=== PATIENT | male | born 1955 | race Caucasian/White ===

== ENCOUNTER 2017-11-01 08:25 | Inpatient (IN) | payer MEDICAID, OTHER ==
[~2017-11-01] VITALS: Ht 170.2 cm; Wt 100.3 kg
[2017-11-01 09:26] LABS: Basophils # (auto) 0.1 uL; Basophils % (auto) 1.3 % (0.0-2.0); Eosinophils # (auto) 0.2 uL; Eosinophils % (auto) 2.5 % (0.0-7.0); Hematocrit 47.4 % (41.0-53.0); Hemoglobin 15.5 g/dL (13.5-17.5); Lymphocytes # (auto) 2.4 uL; Lymphocytes % (auto) 26.7 % (10.0-50.0); Mean Corpuscular Hemoglobin 27.4 pg (28.0-32.0); Mean Corpuscular Hgb Conc. 32.6 g/dL (32.0-36.0); Mean Corpuscular Volume 84.1 fL (80.0-100.0); Monocytes # (auto) 1.1 uL; Monocytes % (auto) 11.9 % (0.0-12.0); Neutrophils # (auto) 5.1 uL; Neutrophils % (auto) 57.6 % (37.0-80.0); Nucleated Red Blood Cells % 0.1 %; Platelet Count (auto) 281 10^3/uL (140-450); Red Blood Cells 5.63 10^6/uL (4.5-5.90); Red Cell Distribution Width 15.2 % (11.8-14.3); White Blood Cell 8.9 10^3/uL (4.4-10.8)
[2017-11-01 09:46] LABS: BUN/Creatinine Ratio 15.8; Bilirubin, Total 0.4 mg/dL (0.2-1.0); Calcium 9.2 mg/dL (8.5-10.1); Potassium 4.7 mmol/L (3.5-5.1); Total Protein 6.8 g/dL (6.4-8.2)
[2017-11-01] MEDS ORDERED: ACETAMINOPHEN 500 MG TAB PO PRN (10:15)
[2017-11-01] MEDS ORDERED: PROMETHAZINE HCL 25 MG/ML 1ML IV PRN (10:15)
[2017-11-01] MEDS ORDERED: MORPHINE SULF(PF) 0.5MG/ML 10ML VIAL IV PRN (10:15)
[2017-11-01] MEDS ORDERED: NALBUPHINE HCL 10 MG/1ml INJECTION IV PRN (10:15)
[2017-11-01] MEDS ORDERED: LACTULOSE 20Gm/30ML SOLN PO PRN (10:15)
[2017-11-01] MEDS ORDERED: NITROGLYCERIN 0.4 MG SL TAB SL PRN (10:15)
[2017-11-01] MEDS ORDERED: TEMAZEPAM 15 MG CAP PO PRN (10:15)
[2017-11-01] MEDS ORDERED: FUROSEMIDE 40 MG/4 ML VIAL IV ONE (10:15)
[2017-11-01] MEDS ORDERED: DEXTROSE (50%) 50ML SYRG IV PRN (10:15)
[2017-11-01] MEDS ORDERED: LORazepam 0.5 MG TAB PO PRN (10:15)
[2017-11-01] MEDS ORDERED: HYDROcodone-ACET 5/325MG TAB PO PRN (10:15)
[2017-11-01 11:29] LABS: Partial Thromboplastin Time 27.5 sec (23.78-33.04); Prothrombin Time 10.7 sec (9.27-12.13)
[2017-11-01] MEDS: ACCU-CHEK COMFORT CURVE STRIP VI SCH ×3 (11:49→22:04)
[2017-11-01 12:19] LABS: Alcohol, Urine < 3.0 mg/dL (0-5); Amphetamine Screen, Urine POSITIVE (NEGATIVE); Barbiturate Scree,Urine NEGATIVE (NEGATIVE); Benzodiazephine Screen, Urine NEGATIVE (NEGATIVE); Cannabinoid Screen, Urine POSITIVE (NEGATIVE); Cocaine Screen, Urine NEGATIVE (NEGATIVE); Opiate Scree,Urine NEGATIVE (NEGATIVE); Phencyclidine Screen, Urine NEGATIVE (NEGATIVE)
[2017-11-01 12:20] LABS: Urine Bacteria NONE SEEN /hpf (None Seen); Urine Blood Negative /uL (Negative); Urine Specific Gravity 1.026 (1.001-1.035); Urine WBC 1 /hpf (0 - 3)
[2017-11-01] MEDS: InsuLIN REG 1unit/0.01ml Soln (100units/ml) SC SCH ×3 (12:39→22:04)
[2017-11-01] MEDS: SODIUM CHLOR 0.9% PF (SALINE LOCK) 10ML VIAL/SYR IV SCH ×2 (12:39→22:04)
[2017-11-01] MEDS: ASPirin 81 mg TAB PO SCH (12:39)
[2017-11-01] MEDS ORDERED: OPTISON 3ml Vial for INJ IV ONE ×2 (14:54→15:15)
[2017-11-01] MEDS: POTASSIUM CHL 20 Meq TABLET PO SCH (18:09)
[2017-11-01] MEDS: FUROSEMIDE 40 MG/4 ML VIAL IV SCH (18:09)
[2017-11-01 22:00] VITALS: BP 120/89
[2017-11-01] MEDS: ATORVASTATIN 20 MG TAB PO SCH (22:03)
[2017-11-01] MEDS: CARVEDILOL 3.125 MG TAB PO SCH (22:04)
[2017-11-01] MEDS ORDERED: INSLANTI SC (22:27)
[2017-11-01] MEDS ORDERED: WARF6TAB21 PO (22:27)
[2017-11-01] MEDS ORDERED: FURO40TA PO (22:27)
[2017-11-01] MEDS ORDERED: METF-370 PO (22:27)
[2017-11-02 05:10] VITALS: BP 132/92
[2017-11-02] MEDS: POTASSIUM CHL 20 Meq TABLET PO SCH ×2 (05:43→17:38)
[2017-11-02] MEDS: SODIUM CHLOR 0.9% PF (SALINE LOCK) 10ML VIAL/SYR IV SCH ×3 (05:43→22:46)
[2017-11-02] MEDS: FUROSEMIDE 40 MG/4 ML VIAL IV SCH ×2 (05:43→17:40)
[2017-11-02] MEDS: ACCU-CHEK COMFORT CURVE STRIP VI SCH ×4 (06:10→22:00)
[2017-11-02] MEDS: InsuLIN REG 1unit/0.01ml Soln (100units/ml) SC SCH ×4 (06:11→22:55)
[2017-11-02 06:47] LABS: Cholesterol 166 mg/dL (< 200); HDL Cholesterol 31 mg/dL (40-59); LDL Cholesterol 124 mg/dL (< 100); Triglycerides 120 mg/dL (< 150)
[2017-11-02 09:00] VITALS: BP 139/87
[2017-11-02] MEDS: NITROGLYCERIN 0.2MG/HR TOPICAL PATCH TD SCH (10:00)
[2017-11-02] MEDS: ENOXAPARIN SOD 40 MG/0.4 ML SYRINGE SC SCH (10:07)
[2017-11-02] MEDS: PANTOPRAZOLE 40 MG TAB PO SCH (10:14)
[2017-11-02] MEDS: ENALAPRIL MALEATE 2.5 MG TAB PO SCH (10:14)
[2017-11-02] MEDS: ASPirin 81 mg TAB PO SCH (10:15)
[2017-11-02] MEDS: CARVEDILOL 3.125 MG TAB PO SCH ×2 (10:15→22:46)
[2017-11-02 13:00] VITALS: BP 116/84
[2017-11-02 17:00] VITALS: BP 93/58
[2017-11-02 22:00] VITALS: BP 102/76
[2017-11-02] MEDS: ATORVASTATIN 20 MG TAB PO SCH (22:46)
[2017-11-03 05:01] VITALS: BP 106/74
[2017-11-03 05:54] LABS: Basophils # (auto) 0.1 uL; Basophils % (auto) 1.1 % (0.0-2.0); Eosinophils # (auto) 0.3 uL; Eosinophils % (auto) 2.9 % (0.0-7.0); Hematocrit 48.4 % (41.0-53.0); Hemoglobin 16.1 g/dL (13.5-17.5); Lymphocytes # (auto) 2.9 uL; Lymphocytes % (auto) 29.7 % (10.0-50.0); Mean Corpuscular Hemoglobin 27.7 pg (28.0-32.0); Mean Corpuscular Hgb Conc. 33.2 g/dL (32.0-36.0); Mean Corpuscular Volume 83.4 fL (80.0-100.0); Monocytes # (auto) 1.1 uL; Monocytes % (auto) 11.5 % (0.0-12.0); Neutrophils # (auto) 5.3 uL; Neutrophils % (auto) 54.8 % (37.0-80.0); Nucleated Red Blood Cells % 0.1 %; Platelet Count (auto) 283 10^3/uL (140-450); Red Cell Distribution Width 15.1 % (11.8-14.3); White Blood Cell 9.6 10^3/uL (4.4-10.8)
[2017-11-03 06:11] LABS: BUN/Creatinine Ratio 20.6; Bilirubin, Total 0.6 mg/dL (0.2-1.0); Calcium 9.4 mg/dL (8.5-10.1); Magnesium 2.4 mg/dL (1.6-2.6); Potassium 4.7 mmol/L (3.5-5.1); Total Protein 6.9 g/dL (6.4-8.2)
[2017-11-03] MEDS: ACCU-CHEK COMFORT CURVE STRIP VI SCH ×4 (06:28→21:36)
[2017-11-03] MEDS: SODIUM CHLOR 0.9% PF (SALINE LOCK) 10ML VIAL/SYR IV SCH ×3 (06:28→21:43)
[2017-11-03] MEDS: POTASSIUM CHL 20 Meq TABLET PO SCH ×2 (06:28→17:40)
[2017-11-03] MEDS: InsuLIN REG 1unit/0.01ml Soln (100units/ml) SC SCH ×4 (06:28→21:36)
[2017-11-03] MEDS: FUROSEMIDE 40 MG/4 ML VIAL IV SCH ×2 (06:28→17:40)
[2017-11-03 09:00] VITALS: BP 114/78
[2017-11-03] MEDS: ENALAPRIL MALEATE 2.5 MG TAB PO SCH (10:00)
[2017-11-03] MEDS: NITROGLYCERIN 0.2MG/HR TOPICAL PATCH TD SCH (10:00)
[2017-11-03] MEDS: ENOXAPARIN SOD 40 MG/0.4 ML SYRINGE SC SCH (10:11)
[2017-11-03] MEDS: ASPirin 81 mg TAB PO SCH (10:11)
[2017-11-03] MEDS: PANTOPRAZOLE 40 MG TAB PO SCH (10:11)
[2017-11-03] MEDS: CARVEDILOL 3.125 MG TAB PO SCH ×2 (10:12→21:42)
[2017-11-03 13:00] VITALS: BP 109/77
[2017-11-03 17:00] VITALS: BP 99/67
[2017-11-03 20:00] VITALS: BP 143/75
[2017-11-03] MEDS: ATORVASTATIN 20 MG TAB PO SCH (21:42)
[2017-11-03 22:00] VITALS: BP 127/87
[2017-11-04 05:45] VITALS: BP 103/70
[2017-11-04] MEDS: POTASSIUM CHL 20 Meq TABLET PO SCH ×2 (06:38→17:41)
[2017-11-04] MEDS: SODIUM CHLOR 0.9% PF (SALINE LOCK) 10ML VIAL/SYR IV SCH ×3 (06:39→22:24)
[2017-11-04] MEDS: FUROSEMIDE 40 MG/4 ML VIAL IV SCH ×2 (06:39→17:41)
[2017-11-04] MEDS: InsuLIN REG 1unit/0.01ml Soln (100units/ml) SC SCH ×4 (06:47→22:13)
[2017-11-04] MEDS: ACCU-CHEK COMFORT CURVE STRIP VI SCH ×4 (06:47→22:13)
[2017-11-04 09:00] VITALS: BP 111/72
[2017-11-04] MEDS: PANTOPRAZOLE 40 MG TAB PO SCH (09:58)
[2017-11-04] MEDS: ENOXAPARIN SOD 40 MG/0.4 ML SYRINGE SC SCH (09:58)
[2017-11-04] MEDS: ASPirin 81 mg TAB PO SCH (09:59)
[2017-11-04] MEDS: CARVEDILOL 3.125 MG TAB PO SCH ×2 (09:59→22:24)
[2017-11-04] MEDS: ENALAPRIL MALEATE 2.5 MG TAB PO SCH (10:00)
[2017-11-04] MEDS: NITROGLYCERIN 0.2MG/HR TOPICAL PATCH TD SCH (10:00)
[2017-11-04 13:00] VITALS: BP 121/89
[2017-11-04 17:00] VITALS: BP 131/87
[2017-11-04 22:00] VITALS: BP 133/79
[2017-11-04] MEDS: ATORVASTATIN 20 MG TAB PO SCH (22:24)
[2017-11-05 05:00] VITALS: BP 126/81
[2017-11-05] MEDS: FUROSEMIDE 40 MG/4 ML VIAL IV SCH ×2 (06:02→17:16)
[2017-11-05] MEDS: SODIUM CHLOR 0.9% PF (SALINE LOCK) 10ML VIAL/SYR IV SCH ×3 (06:03→23:04)
[2017-11-05] MEDS: POTASSIUM CHL 20 Meq TABLET PO SCH ×2 (06:03→17:16)
[2017-11-05] MEDS: InsuLIN REG 1unit/0.01ml Soln (100units/ml) SC SCH ×4 (06:56→23:00)
[2017-11-05] MEDS: ACCU-CHEK COMFORT CURVE STRIP VI SCH ×4 (06:56→22:55)
[2017-11-05 07:39] LABS: Basophils # (auto) 0.1 uL; Eosinophils # (auto) 0.3 uL; Hemoglobin 16.4 g/dL (13.5-17.5); Nucleated Red Blood Cells % 0.2 %; White Blood Cell 8.2 10^3/uL (4.4-10.8)
[2017-11-05 07:43] LABS: Basophils % (auto) 1.4 % (0.0-2.0); Eosinophils % (auto) 3.6 % (0.0-7.0); Hematocrit 49.8 % (41.0-53.0); Lymphocytes # (auto) 2.7 uL; Lymphocytes % (auto) 32.8 % (10.0-50.0); Mean Corpuscular Hemoglobin 27.4 pg (28.0-32.0); Mean Corpuscular Hgb Conc. 32.9 g/dL (32.0-36.0); Mean Corpuscular Volume 83.4 fL (80.0-100.0); Monocytes # (auto) 1.1 uL; Monocytes % (auto) 13.2 % (0.0-12.0); Platelet Count (auto) 293 10^3/uL (140-450); Red Blood Cells 5.97 10^6/uL (4.5-5.90); Red Cell Distribution Width 14.8 % (11.8-14.3)
[2017-11-05 07:57] LABS: Albumin 3.5 g/dL (3.4-5.0); BUN/Creatinine Ratio 22.1; Bilirubin, Total 0.7 mg/dL (0.2-1.0); Calcium 10.3 mg/dL (8.5-10.1); Potassium 5.1 mmol/L (3.5-5.1); Total Protein 7.4 g/dL (6.4-8.2)
[2017-11-05 09:00] VITALS: BP 128/91
[2017-11-05] MEDS: ENALAPRIL MALEATE 2.5 MG TAB PO SCH (10:00)
[2017-11-05] MEDS: NITROGLYCERIN 0.2MG/HR TOPICAL PATCH TD SCH (10:00)
[2017-11-05] MEDS: CARVEDILOL 3.125 MG TAB PO SCH ×2 (10:00→23:04)
[2017-11-05] MEDS: ENOXAPARIN SOD 40 MG/0.4 ML SYRINGE SC SCH (10:00)
[2017-11-05] MEDS: ASPirin 81 mg TAB PO SCH (10:00)
[2017-11-05] MEDS: PANTOPRAZOLE 40 MG TAB PO SCH (10:00)
[2017-11-05] MEDS ORDERED: ADENOSINE 85 MG in GIVE UN-DILUTED 0 ML IV ONE (12:30)
[2017-11-05 13:00] VITALS: BP 106/84
[2017-11-05 14:10] VITALS: BP 126/89
[2017-11-05 17:00] VITALS: BP 130/97
[2017-11-05 22:00] VITALS: BP 124/92
[2017-11-05] MEDS: ATORVASTATIN 20 MG TAB PO SCH (23:04)
[2017-11-06 05:00] VITALS: BP 103/80
[2017-11-06] MEDS: POTASSIUM CHL 20 Meq TABLET PO SCH (06:20)
[2017-11-06] MEDS: FUROSEMIDE 40 MG/4 ML VIAL IV SCH (06:21)
[2017-11-06] MEDS: SODIUM CHLOR 0.9% PF (SALINE LOCK) 10ML VIAL/SYR IV SCH (06:21)
[2017-11-06] MEDS: ACCU-CHEK COMFORT CURVE STRIP VI SCH ×2 (06:44→11:30)
[2017-11-06] MEDS: InsuLIN REG 1unit/0.01ml Soln (100units/ml) SC SCH ×2 (06:45→11:30)
[2017-11-06 09:00] VITALS: BP 134/98
[2017-11-06] MEDS: ASPirin 81 mg TAB PO SCH (09:57)
[2017-11-06] MEDS: PANTOPRAZOLE 40 MG TAB PO SCH (09:58)
[2017-11-06] MEDS: CARVEDILOL 3.125 MG TAB PO SCH (09:58)
[2017-11-06] MEDS: ENALAPRIL MALEATE 2.5 MG TAB PO SCH (09:58)
[2017-11-06] MEDS: ENOXAPARIN SOD 40 MG/0.4 ML SYRINGE SC SCH (09:59)
[2017-11-06] MEDS: NITROGLYCERIN 0.2MG/HR TOPICAL PATCH TD SCH (10:00)
[2017-11-06 11:38] VITALS: BP 134/98
== END 2017-11-06 13:23 | disposition home or self-care (01) | DRG 194 ==
LOC: EDBD 08:25 → ER 08:32 → TELE 08:33 → TELE-WESTW 18:50
PROVIDERS: ADMIT Internal Medicine; ATTEND Internal Medicine
DX: I11.0 Hypertensive heart disease with heart failure (principal); E11.21 Type 2 diabetes mellitus with diabetic nephropathy; E44.0 Moderate protein-calorie malnutrition; I48.92 Unspecified atrial flutter; E11.65 Type 2 diabetes mellitus with hyperglycemia; I42.9 Cardiomyopathy, unspecified; I48.91 Unspecified atrial fibrillation; I50.43 Acute on chronic combined systolic (congestive) and diastolic (congestive) heart failure; I50.9 Heart failure, unspecified; J44.9 Chronic obstructive pulmonary disease, unspecified; E66.9 Obesity, unspecified; E78.5 Hyperlipidemia, unspecified; F12.90 Cannabis use, unspecified, uncomplicated; G47.33 Obstructive sleep apnea (adult) (pediatric); I25.10 Atherosclerotic heart disease of native coronary artery without angina pectoris; I70.0 Atherosclerosis of aorta; Z79.01 Long term (current) use of anticoagulants; Z80.0 Family history of malignant neoplasm of digestive organs; Z71.51 Drug abuse counseling and surveillance of drug abuser; F15.10 Other stimulant abuse, uncomplicated; Z87.891 Personal history of nicotine dependence; Z68.34 Body mass index [BMI] 34.0-34.9, adult
CPT/HCPCS: 36415; 71046; 78452; 80053; 80061; 80307; 81001; 82550; 82962; 83036; 83735; 83880; 84443; 84484; 85025; 85379; 85610; 85652; 85730; 86141; 93005; 93017; 93306; 93970; 94761; 96374; 96375; J0153; J1815; Q9956

== ENCOUNTER 2018-01-17 11:46 | Inpatient (IN) | payer MEDICAID ==
[~2018-01-17] VITALS: Ht 170.2 cm; Wt 97.0 kg
[~2018-01-17 11:46] MED LIST: FURO40TA PO; INSLANTI SC; METF-370 PO; WARF6TAB21 PO
[2018-01-17] MEDS ORDERED: CLINDAMYCIN 600MG IV 50 ML IV ONE (12:15)
[2018-01-17 13:22] LABS: Basophils # (auto) 0.1 uL; Basophils % (auto) 0.5 % (0.0-2.0); Eosinophils # (auto) 0 uL; Eosinophils % (auto) 0.3 % (0.0-7.0); Hematocrit 45.5 % (41.0-53.0); Lymphocytes # (auto) 1.4 uL; Mean Corpuscular Hemoglobin 27.7 pg (28.0-32.0); Mean Corpuscular Volume 83.9 fL (80.0-100.0); Monocytes # (auto) 1.1 uL; Monocytes % (auto) 9.1 % (0.0-12.0); Neutrophils % (auto) 78.1 % (37.0-80.0); Platelet Count (auto) 240 10^3/uL (140-450); Red Blood Cells 5.42 10^6/uL (4.5-5.90); Red Cell Distribution Width 14.4 % (11.8-14.3); White Blood Cell 11.5 10^3/uL (4.4-10.8)
[2018-01-17 13:48] LABS: Albumin 2.8 g/dL (3.4-5.0); Bilirubin, Total 0.8 mg/dL (0.2-1.0); Calcium 9.3 mg/dL (8.5-10.1); Magnesium 2.6 mg/dL (1.6-2.6); Potassium 4.5 mmol/L (3.5-5.1); Total Protein 7.4 g/dL (6.4-8.2)
[2018-01-17] MEDS ORDERED: ACETAMINOPHEN 325 MG TAB PO PRN (14:00)
[2018-01-17] MEDS ORDERED: cloNIDine HCL 0.1 MG TAB PO PRN (14:00)
[2018-01-17] MEDS: SODIUM CHLOR 0.9% PF (SALINE LOCK) 10ML VIAL/SYR IV SCH ×2 (14:00→22:29)
[2018-01-17] MEDS ORDERED: cefTRIAXone 1GM/10ml IVPUSH 10 ML IV ONE (14:00)
[2018-01-17] MEDS ORDERED: DEXTROSE (50%) 50ML SYRG IV PRN (14:00)
[2018-01-17] MEDS ORDERED: MORPHINE SULF INJ 2 MG/ML SYRINGE 1ML IV PRN ×2 (14:00)
[2018-01-17] MEDS ORDERED: DOCUSATE SOD 100 MG CAP PO PRN (14:00)
[2018-01-17] MEDS ORDERED: TEMAZEPAM 15 MG CAP PO PRN (14:00)
[2018-01-17] MEDS ORDERED: NITROGLYCERIN 0.4 MG SL TAB SL PRN (14:00)
[2018-01-17] MEDS ORDERED: ONDANSETRON HCL 4 MG/2 ML VIAL IV PRN (14:00)
[2018-01-17] MEDS ORDERED: FUROSEMIDE 40 MG/4 ML VIAL IV ONE (14:15)
[2018-01-17] MEDS ORDERED: POTASSIUM CHL 10 Meq TABLET PO ONE (14:15)
[2018-01-17] MEDS: CLINDAMYCIN 300MG IV 50 ML IV SCH ×2 (16:25→22:24)
[2018-01-17] MEDS: ACCU-CHEK COMFORT CURVE STRIP VI SCH ×2 (16:37→22:29)
[2018-01-17] MEDS: InsuLIN REG 1unit/0.01ml Soln (100units/ml) SC SCH ×2 (16:43→22:34)
[2018-01-17] MEDS: Glucerna Carbsteady SHAKE Vanilla 8oz PO SCH (19:04)
[2018-01-17 20:00] VITALS: BP 104/72
[2018-01-17] MEDS: HYDROcodone-ACET 5/325MG TAB PO PRN (20:28)
[2018-01-17 22:00] VITALS: BP 104/72
[2018-01-17] MEDS: METOPROLOL TARTRATE 25 MG TAB PO SCH (22:00)
[2018-01-17] MEDS: FAMOTIDINE 20 MG TAB PO SCH (22:24)
[2018-01-17] MEDS: ATORVASTATIN 20 MG TAB PO SCH (22:24)
[2018-01-17] MEDS: INSULIN LANTUS (GLARGINE) 1 /0.01ml (100units/ml) SC SCH (22:34)
[2018-01-18] MEDS ORDERED: ASPI-231 PO (02:27)
[2018-01-18] MEDS ORDERED: ATO40T PO (02:27)
[2018-01-18] MEDS ORDERED: METO25TA5 PO (02:27)
[2018-01-18] MEDS ORDERED: METF-370 PO (02:27)
[2018-01-18] MEDS ORDERED: SIMV-8 PO (02:27)
[2018-01-18] MEDS ORDERED: ENAL2.5T PO (02:27)
[2018-01-18 05:41] VITALS: BP 116/78
[2018-01-18] MEDS: CLINDAMYCIN 300MG IV 50 ML IV SCH ×3 (05:46→21:46)
[2018-01-18] MEDS: SODIUM CHLOR 0.9% PF (SALINE LOCK) 10ML VIAL/SYR IV SCH ×3 (06:04→21:47)
[2018-01-18] MEDS: ACCU-CHEK COMFORT CURVE STRIP VI SCH ×4 (06:27→21:52)
[2018-01-18] MEDS: InsuLIN REG 1unit/0.01ml Soln (100units/ml) SC SCH ×4 (06:28→21:52)
[2018-01-18 06:33] LABS: Basophils # (auto) 0.1 uL; Basophils % (auto) 0.9 % (0.0-2.0); Eosinophils # (auto) 0.2 uL; Eosinophils % (auto) 1.8 % (0.0-7.0); Hematocrit 43.4 % (41.0-53.0); Hemoglobin 14.5 g/dL (13.5-17.5); Lymphocytes # (auto) 1.1 uL; Lymphocytes % (auto) 13.3 % (10.0-50.0); Mean Corpuscular Hemoglobin 27.8 pg (28.0-32.0); Mean Corpuscular Hgb Conc. 33.4 g/dL (32.0-36.0); Mean Corpuscular Volume 83.3 fL (80.0-100.0); Monocytes # (auto) 0.9 uL; Monocytes % (auto) 10.5 % (0.0-12.0); Neutrophils # (auto) 6.3 uL; Neutrophils % (auto) 73.5 % (37.0-80.0); Platelet Count (auto) 210 10^3/uL (140-450); Red Blood Cells 5.21 10^6/uL (4.5-5.90); Red Cell Distribution Width 14.1 % (11.8-14.3); White Blood Cell 8.6 10^3/uL (4.4-10.8)
[2018-01-18 06:42] LABS: Albumin 2.3 g/dL (3.4-5.0); Calcium 9.1 mg/dL (8.5-10.1); Potassium 4.1 mmol/L (3.5-5.1)
[2018-01-18 06:45] LABS: Bilirubin, Total 0.6 mg/dL (0.2-1.0); Total Protein 6.5 g/dL (6.4-8.2)
[2018-01-18] MEDS: Glucerna Carbsteady SHAKE Vanilla 8oz PO SCH ×3 (08:00→18:01)
[2018-01-18 09:22] VITALS: BP 108/72
[2018-01-18] MEDS: MULTIPLE VITAMIN TAB PO SCH (09:28)
[2018-01-18] MEDS: FAMOTIDINE 20 MG TAB PO SCH ×2 (09:28→21:45)
[2018-01-18] MEDS: POTASSIUM CHL 10 Meq TABLET PO SCH (09:28)
[2018-01-18] MEDS: ENALAPRIL MALEATE 2.5 MG TAB PO SCH (09:29)
[2018-01-18] MEDS: ASPirin-EC 81 mg tab PO SCH (09:29)
[2018-01-18] MEDS: HYDROcodone-ACET 5/325MG TAB PO PRN ×3 (09:29→19:41)
[2018-01-18] MEDS: FUROSEMIDE 40 MG/4 ML VIAL IV SCH (09:30)
[2018-01-18] MEDS: cefTRIAXone 1GM/10ml IVPUSH 10 ML IV SCH (09:30)
[2018-01-18] MEDS: ENOXAPARIN SOD 40 MG/0.4 ML SYRINGE SC SCH (09:30)
[2018-01-18] MEDS: METOPROLOL TARTRATE 25 MG TAB PO SCH ×2 (10:00→21:46)
[2018-01-18 12:59] VITALS: BP 107/69
[2018-01-18 17:03] VITALS: BP 98/71
[2018-01-18 19:20] LABS: Urine Bacteria FEW /hpf (None Seen); Urine Blood Negative /uL (Negative); Urine Hyaline Cast FEW /lpf (0 - 2); Urine Mucus FEW (None Seen); Urine Specific Gravity 1.021 (1.001-1.035); Urine WBC 2 /hpf (0 - 3)
[2018-01-18] MEDS: ATORVASTATIN 20 MG TAB PO SCH (21:45)
[2018-01-18] MEDS: INSULIN LANTUS (GLARGINE) 1 /0.01ml (100units/ml) SC SCH (21:52)
[2018-01-18 22:00] VITALS: BP 110/84
[2018-01-19 05:00] VITALS: BP 131/70
[2018-01-19] MEDS: HYDROcodone-ACET 5/325MG TAB PO PRN ×3 (05:12→21:46)
[2018-01-19 05:55] LABS: Basophils # (auto) 0.1 uL; Basophils % (auto) 1.1 % (0.0-2.0); Eosinophils # (auto) 0.2 uL; Eosinophils % (auto) 2.8 % (0.0-7.0); Hematocrit 42.3 % (41.0-53.0); Hemoglobin 14.3 g/dL (13.5-17.5); Lymphocytes # (auto) 1.7 uL; Lymphocytes % (auto) 25.9 % (10.0-50.0); Mean Corpuscular Hgb Conc. 33.8 g/dL (32.0-36.0); Mean Corpuscular Volume 82.8 fL (80.0-100.0); Monocytes # (auto) 0.8 uL; Monocytes % (auto) 11.8 % (0.0-12.0); Neutrophils # (auto) 3.8 uL; Neutrophils % (auto) 58.4 % (37.0-80.0); Nucleated Red Blood Cells % 0.1 %; Platelet Count (auto) 249 10^3/uL (140-450); Red Blood Cells 5.11 10^6/uL (4.5-5.90); Red Cell Distribution Width 14.2 % (11.8-14.3); White Blood Cell 6.5 10^3/uL (4.4-10.8)
[2018-01-19] MEDS: SODIUM CHLOR 0.9% PF (SALINE LOCK) 10ML VIAL/SYR IV SCH ×3 (06:00→21:42)
[2018-01-19] MEDS: CLINDAMYCIN 300MG IV 50 ML IV SCH ×3 (06:00→21:42)
[2018-01-19] MEDS: ACCU-CHEK COMFORT CURVE STRIP VI SCH ×4 (06:00→21:45)
[2018-01-19] MEDS: InsuLIN REG 1unit/0.01ml Soln (100units/ml) SC SCH ×4 (06:01→21:44)
[2018-01-19 06:18] LABS: Albumin 2.5 g/dL (3.4-5.0); Bilirubin, Total 0.5 mg/dL (0.2-1.0); Calcium 9.2 mg/dL (8.5-10.1); Total Protein 6.6 g/dL (6.4-8.2)
[2018-01-19] MEDS: Glucerna Carbsteady SHAKE Vanilla 8oz PO SCH ×3 (08:00→17:46)
[2018-01-19 09:00] VITALS: BP 111/84
[2018-01-19] MEDS: ENOXAPARIN SOD 40 MG/0.4 ML SYRINGE SC SCH (09:45)
[2018-01-19] MEDS: MULTIPLE VITAMIN TAB PO SCH (09:45)
[2018-01-19] MEDS: POTASSIUM CHL 10 Meq TABLET PO SCH (09:45)
[2018-01-19] MEDS: cefTRIAXone 1GM/10ml IVPUSH 10 ML IV SCH (09:45)
[2018-01-19] MEDS: ASPirin-EC 81 mg tab PO SCH (09:45)
[2018-01-19] MEDS: FUROSEMIDE 40 MG/4 ML VIAL IV SCH (09:45)
[2018-01-19] MEDS: FAMOTIDINE 20 MG TAB PO SCH ×2 (09:45→21:44)
[2018-01-19] MEDS: ENALAPRIL MALEATE 2.5 MG TAB PO SCH (09:46)
[2018-01-19] MEDS: METOPROLOL TARTRATE 25 MG TAB PO SCH ×2 (09:46→21:43)
[2018-01-19 13:00] VITALS: BP 103/74
[2018-01-19 16:26] VITALS: BP 113/81
[2018-01-19] MEDS: ATORVASTATIN 20 MG TAB PO SCH (21:42)
[2018-01-19] MEDS: INSULIN LANTUS (GLARGINE) 1 /0.01ml (100units/ml) SC SCH (21:44)
[2018-01-19 22:00] VITALS: BP 108/76
[2018-01-20 05:00] VITALS: BP 133/78
[2018-01-20] MEDS: CLINDAMYCIN 300MG IV 50 ML IV SCH ×3 (05:32→23:24)
[2018-01-20] MEDS: SODIUM CHLOR 0.9% PF (SALINE LOCK) 10ML VIAL/SYR IV SCH ×3 (05:32→23:24)
[2018-01-20] MEDS: InsuLIN REG 1unit/0.01ml Soln (100units/ml) SC SCH ×4 (06:30→23:26)
[2018-01-20] MEDS: ACCU-CHEK COMFORT CURVE STRIP VI SCH ×4 (06:30→23:27)
[2018-01-20] MEDS: HYDROcodone-ACET 5/325MG TAB PO PRN ×3 (06:31→19:56)
[2018-01-20 08:13] VITALS: BP 106/80
[2018-01-20] MEDS: Glucerna Carbsteady SHAKE Vanilla 8oz PO SCH ×3 (08:35→17:38)
[2018-01-20] MEDS: POTASSIUM CHL 10 Meq TABLET PO SCH (09:38)
[2018-01-20] MEDS: FUROSEMIDE 40 MG/4 ML VIAL IV SCH (09:38)
[2018-01-20] MEDS: ASPirin-EC 81 mg tab PO SCH (09:39)
[2018-01-20] MEDS: METOPROLOL TARTRATE 25 MG TAB PO SCH ×2 (09:39→23:25)
[2018-01-20] MEDS: MULTIPLE VITAMIN TAB PO SCH (09:39)
[2018-01-20] MEDS: ENOXAPARIN SOD 40 MG/0.4 ML SYRINGE SC SCH (09:39)
[2018-01-20] MEDS: ENALAPRIL MALEATE 2.5 MG TAB PO SCH (09:41)
[2018-01-20] MEDS: FAMOTIDINE 20 MG TAB PO SCH ×2 (09:54→23:26)
[2018-01-20] MEDS: cefTRIAXone 1GM/10ml IVPUSH 10 ML IV SCH (09:54)
[2018-01-20 13:46] VITALS: BP 115/80
[2018-01-20 16:20] VITALS: BP 117/80
[2018-01-20 22:00] VITALS: BP 130/89
[2018-01-20] MEDS: ATORVASTATIN 20 MG TAB PO SCH (23:25)
[2018-01-20] MEDS: INSULIN LANTUS (GLARGINE) 1 /0.01ml (100units/ml) SC SCH (23:27)
[2018-01-21 05:00] VITALS: BP 111/70
[2018-01-21] MEDS: SODIUM CHLOR 0.9% PF (SALINE LOCK) 10ML VIAL/SYR IV SCH ×3 (05:07→22:14)
[2018-01-21] MEDS: CLINDAMYCIN 300MG IV 50 ML IV SCH ×3 (05:07→22:14)
[2018-01-21 06:23] LABS: Basophils # (auto) 0.1 uL; Basophils % (auto) 1.1 % (0.0-2.0); Eosinophils # (auto) 0.2 uL; Eosinophils % (auto) 2.4 % (0.0-7.0); Hematocrit 45.4 % (41.0-53.0); Hemoglobin 15.3 g/dL (13.5-17.5); Lymphocytes # (auto) 2.6 uL; Lymphocytes % (auto) 28.7 % (10.0-50.0); Mean Corpuscular Hgb Conc. 33.7 g/dL (32.0-36.0); Monocytes # (auto) 1.1 uL; Monocytes % (auto) 12.1 % (0.0-12.0); Neutrophils % (auto) 55.7 % (37.0-80.0); Nucleated Red Blood Cells % 0.1 %; Platelet Count (auto) 337 10^3/uL (140-450); Red Blood Cells 5.47 10^6/uL (4.5-5.90)
[2018-01-21 06:32] LABS: Potassium 4.8 mmol/L (3.5-5.1)
[2018-01-21 06:45] LABS: Albumin 2.7 g/dL (3.4-5.0); BUN/Creatinine Ratio 22.9; Calcium 9.8 mg/dL (8.5-10.1)
[2018-01-21] MEDS: ACCU-CHEK COMFORT CURVE STRIP VI SCH ×4 (06:46→22:16)
[2018-01-21] MEDS: InsuLIN REG 1unit/0.01ml Soln (100units/ml) SC SCH ×3 (06:46→17:29)
[2018-01-21 06:48] LABS: Bilirubin, Total 0.4 mg/dL (0.2-1.0); Total Protein 7.1 g/dL (6.4-8.2)
[2018-01-21 08:53] VITALS: BP 124/90
[2018-01-21] MEDS: Glucerna Carbsteady SHAKE Vanilla 8oz PO SCH ×3 (08:53→17:30)
[2018-01-21] MEDS: METOPROLOL TARTRATE 25 MG TAB PO SCH ×2 (08:54→22:15)
[2018-01-21] MEDS: ASPirin-EC 81 mg tab PO SCH (08:54)
[2018-01-21] MEDS: POTASSIUM CHL 10 Meq TABLET PO SCH (08:54)
[2018-01-21] MEDS: MULTIPLE VITAMIN TAB PO SCH (08:54)
[2018-01-21] MEDS: ENOXAPARIN SOD 40 MG/0.4 ML SYRINGE SC SCH (08:55)
[2018-01-21] MEDS: cefTRIAXone 1GM/10ml IVPUSH 10 ML IV SCH (08:55)
[2018-01-21] MEDS: ENALAPRIL MALEATE 2.5 MG TAB PO SCH (08:55)
[2018-01-21] MEDS: FUROSEMIDE 40 MG/4 ML VIAL IV SCH (08:56)
[2018-01-21] MEDS: FAMOTIDINE 20 MG TAB PO SCH ×2 (09:04→22:14)
[2018-01-21 12:43] VITALS: BP 108/71
[2018-01-21] MEDS: HYDROcodone-ACET 5/325MG TAB PO PRN ×2 (12:47→18:57)
[2018-01-21 17:01] VITALS: BP 97/70
[2018-01-21 21:44] VITALS: BP 114/69
[2018-01-21] MEDS: ATORVASTATIN 20 MG TAB PO SCH (22:15)
[2018-01-22] MEDS: INSULIN LANTUS (GLARGINE) 1 /0.01ml (100units/ml) SC SCH (04:27)
[2018-01-22] MEDS: InsuLIN REG 1unit/0.01ml Soln (100units/ml) SC SCH ×2 (04:27→06:32)
[2018-01-22 04:29] VITALS: BP 115/83
[2018-01-22] MEDS: CLINDAMYCIN 300MG IV 50 ML IV SCH (05:40)
[2018-01-22] MEDS: SODIUM CHLOR 0.9% PF (SALINE LOCK) 10ML VIAL/SYR IV SCH (05:41)
[2018-01-22] MEDS: ACCU-CHEK COMFORT CURVE STRIP VI SCH (05:41)
[2018-01-22 07:14] LABS: Calcium 9.8 mg/dL (8.5-10.1); Potassium 4.6 mmol/L (3.5-5.1)
[2018-01-22 08:30] VITALS: BP 115/75
[2018-01-22] MEDS: ENOXAPARIN SOD 40 MG/0.4 ML SYRINGE SC SCH (10:20)
[2018-01-22] MEDS: cefTRIAXone 1GM/10ml IVPUSH 10 ML IV SCH (10:20)
[2018-01-22] MEDS: FAMOTIDINE 20 MG TAB PO SCH (10:21)
[2018-01-22] MEDS: POTASSIUM CHL 10 Meq TABLET PO SCH (10:28)
[2018-01-22] MEDS: FUROSEMIDE 40 MG/4 ML VIAL IV SCH (10:28)
[2018-01-22] MEDS: METOPROLOL TARTRATE 25 MG TAB PO SCH (10:29)
[2018-01-22] MEDS: ENALAPRIL MALEATE 2.5 MG TAB PO SCH (10:30)
[2018-01-22] MEDS: Glucerna Carbsteady SHAKE Vanilla 8oz PO SCH (10:35)
[2018-01-22] MEDS: MULTIPLE VITAMIN TAB PO SCH (10:42)
[2018-01-22] MEDS: ASPirin-EC 81 mg tab PO SCH (10:42)
[2018-01-22] MEDS: HYDROcodone-ACET 5/325MG TAB PO PRN (10:42)
[2018-01-22 11:46] VITALS: BP 126/88
== END 2018-01-22 11:50 | disposition home or self-care (01) | DRG 383 ==
LOC: ER 11:48 → TELE 11:49 → TELE-WESTW 19:58 → WEST WING 01-19 09:59
PROVIDERS: ADMIT Internal Medicine; ATTEND Internal Medicine
DX: L03.116 Cellulitis of left lower limb (principal); I50.43 Acute on chronic combined systolic (congestive) and diastolic (congestive) heart failure; E44.0 Moderate protein-calorie malnutrition; E11.21 Type 2 diabetes mellitus with diabetic nephropathy; I42.9 Cardiomyopathy, unspecified; I13.0 Hypertensive heart and chronic kidney disease with heart failure and stage 1 through stage 4 chronic kidney disease, or unspecified chronic kidney disease; E87.1 Hypo-osmolality and hyponatremia; I50.9 Heart failure, unspecified; J44.9 Chronic obstructive pulmonary disease, unspecified; E11.22 Type 2 diabetes mellitus with diabetic chronic kidney disease; N18.3 Chronic kidney disease, stage 3 (moderate); I25.10 Atherosclerotic heart disease of native coronary artery without angina pectoris; Z82.49 Family history of ischemic heart disease and other diseases of the circulatory system; Z83.3 Family history of diabetes mellitus; Z68.33 Body mass index [BMI] 33.0-33.9, adult
CPT/HCPCS: 36415; 71046; 80048; 80053; 81001; 82962; 83036; 83605; 83735; 83880; 84484; 85025; 85652; 87040; 93005; 93971; 96365; 96375; J0696; J1815; J3490

== ENCOUNTER 2018-01-23 21:47 | Emergency (ER) | payer MEDICAID ==
[~2018-01-23 21:47] MED LIST changes: +ASPI-231 PO; +ATO40T PO; +ENAL2.5T PO; +METO25TA5 PO; +SIMV-8 PO; -WARF6TAB21 PO
== END 2018-01-24 02:34 | disposition left against medical advice (07) ==
LOC: ER 21:47
DX: S80.922A Unspecified superficial injury of left lower leg, initial encounter (principal); Z53.21 Procedure and treatment not carried out due to patient leaving prior to being seen by health care provider; X58.XXXA Exposure to other specified factors, initial encounter; Y93.89 Activity, other specified; Y99.8 Other external cause status; Y92.89 Other specified places as the place of occurrence of the external cause

== ENCOUNTER 2018-10-01 18:48 | Inpatient (IN) | payer MEDICAID ==
[~2018-10-01] VITALS: Ht 170.2 cm; Wt 101.9 kg
[~2018-10-01 18:48] MED LIST changes: +RIVA20TA PO
[2018-10-01] MEDS ORDERED: ENALAPRILAT 1.25 MG/ML-1ML VIAL IV ONE (19:30)
[2018-10-01] MEDS ORDERED: FUROSEMIDE 20 MG/2 ML VIAL IV ONE (19:30)
[2018-10-01 19:33] LABS: Basophils # (auto) 0.2 uL; Basophils % (auto) 2.1 % (0.0-2.0); Eosinophils # (auto) 0.3 uL; Eosinophils % (auto) 3.1 % (0.0-7.0); Hematocrit 48.8 % (41.0-53.0); Lymphocytes # (auto) 3.2 uL; Lymphocytes % (auto) 34.2 % (10.0-50.0); Mean Corpuscular Hemoglobin 28.6 pg (28.0-32.0); Mean Corpuscular Hgb Conc. 32.7 g/dL (32.0-36.0); Mean Corpuscular Volume 87.2 fL (80.0-100.0); Monocytes % (auto) 10.9 % (0.0-12.0); Neutrophils # (auto) 4.7 uL; Neutrophils % (auto) 49.7 % (37.0-80.0); Nucleated Red Blood Cells % 0.1 %; Platelet Count (auto) 296 10^3/uL (140-450); Red Blood Cells 5.59 10^6/uL (4.5-5.90); Red Cell Distribution Width 15.7 % (11.8-14.3); White Blood Cell 9.4 10^3/uL (4.4-10.8)
[2018-10-01 19:44] LABS: Albumin 3.1 g/dL (3.4-5.0); Calcium 9.4 mg/dL (8.5-10.1); Magnesium 2.2 mg/dL (1.6-2.6)
[2018-10-01 19:46] LABS: BUN/Creatinine Ratio 13.3
[2018-10-01 19:51] LABS: Bilirubin, Total 0.5 mg/dL (0.2-1.0); Total Protein 6.7 g/dL (6.4-8.2)
[2018-10-01 20:04] LABS: INR 1.03 (0.9-1.15); Partial Thromboplastin Time 26.1 sec (23.64-32.05); Prothrombin Time 11.1 sec (9.06-12.60)
[2018-10-01] MEDS ORDERED: MORPHINE SULF INJ 2 MG/ML SYRINGE 1ML IV PRN (21:45)
[2018-10-01] MEDS ORDERED: LEVOFLOXACIN 500MG 100 ML IV ONE (21:45)
[2018-10-01] MEDS ORDERED: ACETAMINOPHEN 325 MG TAB PO PRN (21:45)
[2018-10-01] MEDS ORDERED: DEXTROSE (50%) 50ML SYRG IV PRN (21:45)
[2018-10-01] MEDS ORDERED: TEMAZEPAM 15 MG CAP PO PRN (21:45)
[2018-10-01] MEDS ORDERED: NITROGLYCERIN 0.4 MG SL TAB SL PRN (21:45)
[2018-10-01] MEDS ORDERED: HYDROcodone-ACET 5/325MG TAB PO PRN (21:45)
[2018-10-01] MEDS ORDERED: ONDANSETRON HCL 4 MG/2 ML VIAL IV PRN (21:45)
[2018-10-01] MEDS: ATORVASTATIN 20 MG TAB PO SCH (22:06)
[2018-10-01] MEDS: METOPROLOL TARTRATE 25 MG TAB PO SCH (22:06)
[2018-10-01] MEDS: FAMOTIDINE 20 MG TAB PO SCH (22:07)
[2018-10-01] MEDS ORDERED: ALBUTEROL SULF 2.5 MG/0.5ML(0.5%) NEB SOLN NEB PRN (22:30)
[2018-10-01 22:40] VITALS: BP 138/88
--- NOTE | 2018-10-01 22:40 | NUR ---
Telemetry admit from ER SAVI BUSCH admitted to Telemetry unit no report given. Patient oriented to Manuela Bowman, primary RN, unit, room, bed, and unit policies regarding patient care and visiting hours. Patient now on continuous telemetry monitoring, tele box # 9. Patient placed on bedside oxygen 2 LPM, weighed by bedscale and encouraged to call if they need something. All questions and concerns addressed, patient verbalized understanding. Bed is in lowest position and locked. Call light is within reach.
[2018-10-01 22:42] LABS: Urine Bacteria NONE SEEN /hpf (None Seen); Urine Blood Negative /uL (Negative); Urine Specific Gravity 1.006 (1.001-1.035); Urine WBC <1 /hpf (0 - 3)
[2018-10-02] VITALS (7 sets, daily range): BP systolic 73–144; BP diastolic 56–83
[2018-10-02] MEDS: InsuLIN REG 1unit/0.01ml Soln (100units/ml) SC SCH ×4 (00:01→18:00)
--- NOTE | 2018-10-02 00:25 | NUR ---
PT ASSESSED FOR PRN TX. PT DENIES SOB. PT RESTING WITH NO DISTRESS. PT IS AWARE TO PAGE IF HE BECOMES SOB. HR 108 RR 20 96% ON ROOM AIR. B/S CLEAR.
--- NOTE | 2018-10-02 01:07 | NUR ---
[facility] CALLED PT IN A. FLUTTER [facility] CALLED AND PATIENT WAS IN A. FLUTTER. EKG WAS TAKEN AND SHOWED SINUS TACHY. THERE IS NO EKG FROM ER TO COMPARE TO. PATIENT IS ASYMPTOMATIC. VITALS ARE BLOOD PRESSURE 110/80 AND PULSE OF 106. NO S/S OF DISTRESS.
--- NOTE | 2018-10-02 01:27 | NUR ---
HOSPITALIST PAGED HOSPITALIST PAGED, AWAITING CALL BACK
--- NOTE | 2018-10-02 01:40 | NUR ---
Hospitalist called back Hospitalist Randa called and was informed about patient. No new orders will continue to monitor.
--- NOTE | 2018-10-02 03:08 | NUR ---
Alfred called Patient had 3 seconds of A. flutter. Patient denies pain. No s/s of distress. Patient is asymptomatic. Cardio consult is pending and hospitalist is already aware.
[2018-10-02] MEDS: ACCU-CHEK COMFORT CURVE STRIP VI SCH ×4 (06:07→18:00)
[2018-10-02] MEDS: FUROSEMIDE 20 MG/2 ML VIAL IV SCH ×2 (06:07→17:44)
[2018-10-02 07:12] LABS: Basophils # (auto) 0.1 uL; Basophils % (auto) 1.3 % (0.0-2.0); Eosinophils # (auto) 0.3 uL; Eosinophils % (auto) 3.1 % (0.0-7.0); Hematocrit 50.7 % (41.0-53.0); Hemoglobin 16.3 g/dL (13.5-17.5); Lymphocytes # (auto) 2.3 uL; Lymphocytes % (auto) 26.7 % (10.0-50.0); Mean Corpuscular Hemoglobin 28.2 pg (28.0-32.0); Mean Corpuscular Hgb Conc. 32.2 g/dL (32.0-36.0); Mean Corpuscular Volume 87.4 fL (80.0-100.0); Monocytes % (auto) 11.9 % (0.0-12.0); Neutrophils # (auto) 4.9 uL; Platelet Count (auto) 297 10^3/uL (140-450); Red Blood Cells 5.81 10^6/uL (4.5-5.90); Red Cell Distribution Width 15.7 % (11.8-14.3); White Blood Cell 8.5 10^3/uL (4.4-10.8)
--- NOTE | 2018-10-02 07:20 | NUR ---
Opening Shift Note Assumed care of patient, awake and alert. No S/S of distress/SOB or pain. Instructed on POC and to call for assist PRN, will continue to monitor for changes Q1hr and PRN. Bed locked in lowest position with two side rails up and call light in reach.
[2018-10-02 07:29] LABS: Calcium 9.9 mg/dL (8.5-10.1)
[2018-10-02 07:31] LABS: BUN/Creatinine Ratio 16.2
--- NOTE | 2018-10-02 07:37 | NUR ---
PT ASSESSED FOR PRN MED NEB TX. NO SOB NOTED ON 2L NC. POX 99%, HR 111, RR 16. B/S ARE CLEAR THROUGHOUT POSTERIORLY. MED NEB TX IS NOT INDICATED. NC HAS BEEN REDUCED TO 1 LPM. PT IS AWARE TO PRESS THE CALL LIGHT IF HE FEELS ANY SOB AND HE CAN RECEIVE A MED NEB TX.
--- NOTE | 2018-10-02 08:20 | NUR ---
ROUNDS PATIENT AWAKE SITTING AT BEDSIDE IN CHAIR. NO S/S OF DISTRESS NOTED.
[2018-10-02] MEDS: LEVOFLOXACIN 500MG 100 ML IV SCH (10:31)
[2018-10-02] MEDS: FAMOTIDINE 20 MG TAB PO SCH ×2 (10:31→22:27)
[2018-10-02] MEDS: ASPirin 81 mg TAB PO SCH (10:31)
[2018-10-02] MEDS: METOPROLOL TARTRATE 25 MG TAB PO SCH ×2 (10:32→22:00)
[2018-10-02] MEDS: ENALAPRIL MALEATE 2.5 MG TAB PO SCH (10:32)
[2018-10-02] MEDS: RIVAROXABAN 20 MG TAB PO SCH (17:44)
--- NOTE | 2018-10-02 19:35 | NUR ---
Opening Shift Note Assumed care of patient, awake and alert. No S/S of distress/SOB or pain. Bed locked in lowest position, side rails upx2, call light within reach. Instructed on POC and to call for assist PRN, will continue to monitor for changes Q1hr and PRN.
[2018-10-02] MEDS: ATORVASTATIN 20 MG TAB PO SCH (22:27)
[2018-10-03] MEDS: InsuLIN REG 1unit/0.01ml Soln (100units/ml) SC SCH ×5 (00:17→23:43)
[2018-10-03] MEDS: ACCU-CHEK COMFORT CURVE STRIP VI SCH ×5 (00:17→23:43)
--- NOTE | 2018-10-03 01:04 | NUR ---
Respiratory note: ASSESSED PT FOR PRN MED NEB AT THIS TIME, PT SLEEPING AT THIS TIME, NO RESP DISTRESS NOTED, NO TX INDICATED, PULSE OX 92% ON 2LNC, HR 101, RR 20, BILATERAL BS DIMINISHED.
--- NOTE | 2018-10-03 03:44 | NUR ---
[facility] called stating patient's heart rate went up in 200s. Immediately checked on patient's and he is asymptomatic and checked the monitora again and it is showing heart rate is back down 110. Patient's heart rate goes up when using the urinal or restroom. Patient states he has no chest pain or feeling of distress. Will continue to monitor patient.
[2018-10-03 05:00] VITALS: BP 126/74
[2018-10-03 06:08] LABS: Basophils # (auto) 0.1 uL; Basophils % (auto) 1.3 % (0.0-2.0); Eosinophils # (auto) 0.3 uL; Eosinophils % (auto) 3.3 % (0.0-7.0); Hematocrit 50.2 % (41.0-53.0); Hemoglobin 16.5 g/dL (13.5-17.5); Lymphocytes # (auto) 2.6 uL; Lymphocytes % (auto) 27.5 % (10.0-50.0); Mean Corpuscular Hemoglobin 28.6 pg (28.0-32.0); Mean Corpuscular Hgb Conc. 32.9 g/dL (32.0-36.0); Mean Corpuscular Volume 86.9 fL (80.0-100.0); Monocytes # (auto) 1.2 uL; Neutrophils # (auto) 5.2 uL; Neutrophils % (auto) 54.9 % (37.0-80.0); Nucleated Red Blood Cells % 0.1 %; Platelet Count (auto) 269 10^3/uL (140-450); Red Blood Cells 5.78 10^6/uL (4.5-5.90); Red Cell Distribution Width 15.9 % (11.8-14.3); White Blood Cell 9.5 10^3/uL (4.4-10.8)
[2018-10-03] MEDS: FUROSEMIDE 20 MG/2 ML VIAL IV SCH ×2 (06:09→17:57)
--- NOTE | 2018-10-03 06:14 | NUR ---
Informed Dr. Morrow regarding patient's high heart rate and rhythm. Awaiting call back. Addendum: 10/03/18 at 0641 by TONEY ALEJANDRA RN Dr. Morrow replied, orders for digoxin 0.25mg PO QDAILY. Will carry out.
[2018-10-03 06:42] LABS: BUN/Creatinine Ratio 20.2; Calcium 9.9 mg/dL (8.5-10.1); Potassium 4.4 mmol/L (3.5-5.1)
[2018-10-03 06:44] LABS: Bilirubin, Total 0.8 mg/dL (0.2-1.0); Total Protein 6.8 g/dL (6.4-8.2)
--- NOTE | 2018-10-03 07:00 | NUR ---
Opening Shift Note Assumed care of patient, awake, alert, and oriented x4. No S/S of distress/SOB or pain. IV is in the left hand 20 gauge asymptomatic, intact, patent, and saline locked. Bed is locked and is in the lowest position and call light is within reach. Instructed on POC and to call for assist PRN, and patient verbalized understanding. Will continue to monitor for changes Q1hr and PRN.
[2018-10-03 09:00] VITALS: BP 139/78
[2018-10-03] MEDS: LEVOFLOXACIN 500MG 100 ML IV SCH (09:59)
[2018-10-03] MEDS: ENALAPRIL MALEATE 2.5 MG TAB PO SCH (10:00)
[2018-10-03] MEDS: METOPROLOL TARTRATE 25 MG TAB PO SCH ×2 (10:03→21:59)
[2018-10-03] MEDS: DIGOXIN 0.25 MG TAB PO SCH (10:03)
[2018-10-03] MEDS: FAMOTIDINE 20 MG TAB PO SCH ×2 (10:03→21:59)
[2018-10-03] MEDS: ASPirin 81 mg TAB PO SCH (10:03)
--- NOTE | 2018-10-03 10:30 | NUR ---
Dr. Shultz at bedside to group counselor patient.
[2018-10-03 13:00] VITALS: BP 114/67
--- NOTE | 2018-10-03 16:44 | NUR ---
ASSESSED PT FOR MED NEB TX. PT ON 2L NC WITH SPO2 94%, HR 83, NO WHEEZING NOTED. NO DISTRESS NOTED. WILL CONTINUE TO MONITOR PT.
[2018-10-03 16:59] VITALS: BP 115/60
[2018-10-03] MEDS: RIVAROXABAN 20 MG TAB PO SCH (17:59)
--- NOTE | 2018-10-03 21:30 | NUR ---
Respiratory note: PT ASSESSED FOR PRN MED NEB TX. HR 63, RR 18, SO2 94% ON 4L NC, BS CLEAR/DIMINISHED. NO SIGNS OF DISTRESS NOTED. ADVISED PT TO CALL IF TX IS NEEDED.
[2018-10-03] MEDS: ATORVASTATIN 20 MG TAB PO SCH (21:59)
[2018-10-03 22:00] VITALS: BP 99/74
[2018-10-04 05:00] VITALS: BP 93/65
[2018-10-04] MEDS: FUROSEMIDE 20 MG/2 ML VIAL IV SCH (05:52)
[2018-10-04 05:53] LABS: Potassium 4.5 mmol/L (3.5-5.1)
[2018-10-04 05:57] LABS: BUN/Creatinine Ratio 21.2
[2018-10-04] MEDS: InsuLIN REG 1unit/0.01ml Soln (100units/ml) SC SCH ×2 (06:08→12:15)
[2018-10-04] MEDS: ACCU-CHEK COMFORT CURVE STRIP VI SCH ×2 (06:08→12:16)
--- NOTE | 2018-10-04 07:00 | NUR ---
SOpening Shift Note Assumed care of patient, awake, alert, and oriented x4. No S/S of distress/SOB or pain. IV is in left hand 20 gauge asymptomatic, intact, patent, and saline locked. Bed locked and in lowest position and call light is within reach. Instructed on POC and to call for assist PRN, and patient verbalized understanding. Will continue to monitor for changes Q1hr and PRN.
[2018-10-04 08:42] VITALS: BP 129/88
[2018-10-04] MEDS: LEVOFLOXACIN 500MG 100 ML IV SCH (10:30)
--- NOTE | 2018-10-04 10:30 | NUR ---
Dr. Shultz at bedside. New orders received.
[2018-10-04] MEDS: ASPirin 81 mg TAB PO SCH (10:31)
[2018-10-04] MEDS: DIGOXIN 0.25 MG TAB PO SCH (10:31)
[2018-10-04] MEDS: ENALAPRIL MALEATE 2.5 MG TAB PO SCH (10:32)
[2018-10-04] MEDS: METOPROLOL TARTRATE 25 MG TAB PO SCH (10:33)
[2018-10-04] MEDS: FAMOTIDINE 20 MG TAB PO SCH (10:33)
--- NOTE | 2018-10-04 10:45 | NUR ---
RT NOTE: WENT TO PTS ROOM TO ASSESS FOR PRN BREATHING TX, PT STATED THAT HE WAS BREATHING FINE AND DID NOT NEED A TX AT THIS TIME. HR 101, SPO2 99%, RR 16, PT IS ON 4L NC DECREASED TO 2LPM. NO S/S OF SOB. WILL CONTINUE TO MONITOR PT.
[2018-10-04 12:42] VITALS: BP 113/82
[2018-10-04 13:04] VITALS: BP 129/88
--- NOTE | 2018-10-04 14:48 | NUR ---
Discharge instructions given as ordered. Encourage to follow up with PMD as instructed. All questions and concerns addressed. Patient verbalized understanding. Medication reconciliation form completed and copy given to patient. IV removed with catheter intact, pressure dressing applied. Telemetry unit returned to [facility].
--- NOTE | 2018-10-04 16:00 | NUR ---
Patient taken to vehicle via wheelchair with all personal belongings, accompanied by staff and family member. No distress noted at time of departure.
== END 2018-10-04 16:00 | disposition home or self-care (01) | DRG 139 ==
LOC: ER 18:51 → TELE 21:38 → TELE-WESTW 22:44
PROVIDERS: ADMIT Nurse Practitioner; ATTEND Internal Medicine
DX: J18.9 Pneumonia, unspecified organism (principal); I50.43 Acute on chronic combined systolic (congestive) and diastolic (congestive) heart failure; E44.0 Moderate protein-calorie malnutrition; I42.9 Cardiomyopathy, unspecified; I48.91 Unspecified atrial fibrillation; J44.0 Chronic obstructive pulmonary disease with (acute) lower respiratory infection; I11.0 Hypertensive heart disease with heart failure; Z79.01 Long term (current) use of anticoagulants; E11.9 Type 2 diabetes mellitus without complications; E78.5 Hyperlipidemia, unspecified; Z68.35 Body mass index [BMI] 35.0-35.9, adult; F12.90 Cannabis use, unspecified, uncomplicated; I25.10 Atherosclerotic heart disease of native coronary artery without angina pectoris; Z80.0 Family history of malignant neoplasm of digestive organs
CPT/HCPCS: 36415; 71045; 80048; 80053; 81001; 82962; 83735; 83880; 84484; 85025; 85610; 85730; 93005; 93306; 94761; 96365; 96366; 96375; G0378; J1815; J1956

== ENCOUNTER 2019-01-21 17:05 | Emergency (ER) | payer MEDICAID ==
[~2019-01-21] VITALS: Ht 170.2 cm; Wt 108.9 kg
[~2019-01-21 17:05] MED LIST changes: -ATO40T PO; +FURO1TAB31 PO; -FURO40TA PO; -INSLANTI SC; -RIVA20TA PO; -SIMV-8 PO
[2019-01-21 18:27] LABS: Basophils # (auto) 0.1 uL; Basophils % (auto) 1.3 % (0.0-2.0); Eosinophils # (auto) 0.2 uL; Eosinophils % (auto) 2.4 % (0.0-7.0); Hematocrit 45.6 % (41.0-53.0); Hemoglobin 15.2 g/dL (13.5-17.5); Lymphocytes # (auto) 2.4 uL; Lymphocytes % (auto) 28.1 % (10.0-50.0); Mean Corpuscular Hemoglobin 29.4 pg (28.0-32.0); Mean Corpuscular Hgb Conc. 33.3 g/dL (32.0-36.0); Mean Corpuscular Volume 88.4 fL (80.0-100.0); Monocytes # (auto) 0.9 uL; Monocytes % (auto) 10.9 % (0.0-12.0); Neutrophils # (auto) 4.9 uL; Neutrophils % (auto) 57.3 % (37.0-80.0); Platelet Count (auto) 305 10^3/uL (140-450); Red Blood Cells 5.16 10^6/uL (4.5-5.90); Red Cell Distribution Width 14.4 % (11.8-14.3); White Blood Cell 8.6 10^3/uL (4.4-10.8)
[2019-01-21 18:44] LABS: BUN/Creatinine Ratio 13.6; Calcium 9.2 mg/dL (8.5-10.1); Potassium 4.2 mmol/L (3.5-5.1)
[2019-01-21 18:49] LABS: Bilirubin, Total 0.7 mg/dL (0.2-1.0); Total Protein 7.1 g/dL (6.4-8.2)
[2019-01-21] MEDS ORDERED: cefTRIAXone 1GM/50ML D5W 50 ML IV ONE (19:15)
[2019-01-21] MEDS ORDERED: cefTRIAXone W LIDOCAINE 1 GM IM IM ONE (19:45)
[2019-01-21] MEDS ORDERED: cefTRIAXone SOD 1,000 MG VL ONE (20:57)
[2019-01-21] MEDS ORDERED: LIDOCAINE 1% HCL (LOCAL ANESTH.) INJ 20ML MDV ONE (20:58)
[2019-01-21 21:00] VITALS: BP 122/80
== END 2019-01-21 21:10 | disposition home or self-care (01) ==
LOC: ER 17:05
DX: S00.33XA Contusion of nose, initial encounter (principal); S80.212A Abrasion, left knee, initial encounter; L03.116 Cellulitis of left lower limb; I48.91 Unspecified atrial fibrillation; J44.9 Chronic obstructive pulmonary disease, unspecified; I11.0 Hypertensive heart disease with heart failure; I50.9 Heart failure, unspecified; E11.9 Type 2 diabetes mellitus without complications; E78.5 Hyperlipidemia, unspecified; F12.90 Cannabis use, unspecified, uncomplicated; Z79.82 Long term (current) use of aspirin; Z79.84 Long term (current) use of oral hypoglycemic drugs; Z79.899 Other long term (current) drug therapy; W18.39XA Other fall on same level, initial encounter; Y93.89 Activity, other specified; Y99.8 Other external cause status; Y92.89 Other specified places as the place of occurrence of the external cause
CPT/HCPCS: 36415; 70486; 73562; 80053; 80320; 83735; 84484; 85025; 93005; 96372; 99284; J0696; J2001

== ENCOUNTER 2022-06-15 12:20 | Inpatient (IN) | payer MEDICAID ==
[~2022-06-15] VITALS: Ht 170.2 cm; Wt 109.8 kg
[~2022-06-15 12:20] MED LIST changes: -ASPI-231 PO; +ASPI1TAB20 PO; -ENAL2.5T PO; +ENAL2.5T7 PO
[2022-06-15] MEDS ORDERED: VANCOMYCIN 1GM/250ML 250 ML IV ONE (15:45)
[2022-06-15 16:01] LABS: Basophils # (auto) 0 10 ^3/uL (0-0.2); Basophils % (auto) 0.2 % (0.0-2.0); Eosinophils # (auto) 0 10 ^3/uL (0-0.8); Hematocrit 42.5 % (41.0-53.0); Hemoglobin 13.6 g/dL (13.5-17.5); Lymphocytes # (auto) 0.9 10 ^3/uL (0.4-5.4); Lymphocytes % (auto) 5.1 % (10.0-50.0); Mean Corpuscular Hgb Conc. 32.1 g/dL (32.0-36.0); Mean Corpuscular Volume 87.2 fL (80.0-100.0); Monocytes % (auto) 11.3 % (0.0-12.0); Neutrophils # (auto) 14.6 10 ^3/uL (1.6-8.6); Neutrophils % (auto) 83.4 % (37.0-80.0); Red Blood Cells 4.87 10^6/uL (4.5-5.90); Red Cell Distribution Width 13.6 % (11.8-14.3); White Blood Cell 17.5 10^3/uL (4.4-10.8)
[2022-06-15 16:17] LABS: BUN/Creatinine Ratio 17.1; Calcium 10.2 mg/dL (8.5-10.1)
[2022-06-15 16:53] LABS: Bilirubin, Total 0.7 mg/dL (0.2-1.0); Total Protein 7.3 g/dL (6.4-8.2)
[2022-06-15] MEDS ORDERED: IOHEXOL 300 MG/ML 100ML BOTTLE IJ ONE (17:56)
[2022-06-15] MEDS ORDERED: ACETAMINOPHEN 325 MG TAB PO PRN (19:45)
[2022-06-15] MEDS ORDERED: VANCOMYCIN PER PHARMACY 0 MG IV SCH (19:45)
[2022-06-15] MEDS ORDERED: ONDANSETRON HCL 4 MG/2 ML VIAL IV PRN (19:45)
[2022-06-15] MEDS ORDERED: MORPHINE SULFATE INJ 2 MG/ml SYRG IV PRN (19:45)
[2022-06-15] MEDS ORDERED: NITROGLYCERIN 0.4 MG SL TAB SL PRN (19:45)
[2022-06-15] MEDS: ASCORBIC ACID 500 MG TAB PO SCH (22:00)
[2022-06-16] MEDS: HYDROcodone-ACET 5/325MG TAB PO PRN ×2 (00:29→15:13)
[2022-06-16 06:17] LABS: Basophils # (auto) 0 10 ^3/uL (0-0.2); Basophils % (auto) 0.2 % (0.0-2.0); Eosinophils # (auto) 0 10 ^3/uL (0-0.8); Hemoglobin 12.4 g/dL (13.5-17.5); Lymphocytes # (auto) 1.4 10 ^3/uL (0.4-5.4); Lymphocytes % (auto) 7.1 % (10.0-50.0); Mean Corpuscular Hemoglobin 27.6 pg (28.0-32.0); Mean Corpuscular Hgb Conc. 32.5 g/dL (32.0-36.0); Monocytes # (auto) 2.9 10 ^3/uL (0-1.3); Monocytes % (auto) 15.1 % (0.0-12.0); Neutrophils % (auto) 77.6 % (37.0-80.0); Red Blood Cells 4.48 10^6/uL (4.5-5.90); Red Cell Distribution Width 13.4 % (11.8-14.3); White Blood Cell 19.3 10^3/uL (4.4-10.8)
[2022-06-16 06:42] LABS: Calcium 9.9 mg/dL (8.5-10.1); Potassium 3.4 mmol/L (3.5-5.1)
[2022-06-16 06:50] LABS: Albumin 2.8 g/dL (3.4-5.0); BUN/Creatinine Ratio 22.1; Total Protein 6.3 g/dL (6.4-8.2)
[2022-06-16] MEDS: VANCOMYCIN 1GM/250ML 250 ML IV SCH ×2 (06:58→19:13)
[2022-06-16] MEDS: MULTIPLE VITAMIN TAB PO SCH (11:03)
[2022-06-16] MEDS: ZINC SULFATE 220mg CAP or TAB PO SCH (11:03)
[2022-06-16] MEDS: PANTOPRAZOLE 40 MG TAB PO SCH (11:04)
[2022-06-16] MEDS: ASCORBIC ACID 500 MG TAB PO SCH ×2 (11:04→22:00)
[2022-06-16] MEDS: ENOXAPARIN SOD 40 MG/0.4 ML SYRINGE SC SCH (11:05)
[2022-06-16] MEDS: MORPHINE SULFATE INJ 2 MG/ml SYRG IV PRN ×2 (12:15→22:01)
[2022-06-16 14:46] VITALS: BP 91/63
[2022-06-16 15:14] VITALS: BP 110/66
[2022-06-16] MEDS ORDERED: DORZ2SOL18 EACHEYE (15:26)
[2022-06-16] MEDS ORDERED: RIV20T PO (15:26)
[2022-06-16] MEDS ORDERED: CLOP75TA70 PO (15:26)
[2022-06-16] MEDS ORDERED: LATA0.0019 EACHEYE (15:26)
[2022-06-16] MEDS ORDERED: GLIP5TAB12 PO (15:26)
[2022-06-16] MEDS ORDERED: ATOR40TA52 PO (15:26)
[2022-06-16 17:00] VITALS: BP 101/66
[2022-06-16 22:00] VITALS: BP 98/65
[2022-06-17 05:00] VITALS: BP 98/68
[2022-06-17] MEDS: VANCOMYCIN 1GM/250ML 250 ML IV SCH ×2 (05:00→17:18)
[2022-06-17 05:29] LABS: Basophils # (auto) 0 10 ^3/uL (0-0.2); Basophils % (auto) 0.1 % (0.0-2.0); Eosinophils # (auto) 0.1 10 ^3/uL (0-0.8); Eosinophils % (auto) 0.7 % (0.0-7.0); Hematocrit 35.3 % (41.0-53.0); Hemoglobin 11.7 g/dL (13.5-17.5); Lymphocytes # (auto) 1.4 10 ^3/uL (0.4-5.4); Lymphocytes % (auto) 9.7 % (10.0-50.0); Mean Corpuscular Hemoglobin 27.7 pg (28.0-32.0); Mean Corpuscular Hgb Conc. 33.1 g/dL (32.0-36.0); Mean Corpuscular Volume 83.7 fL (80.0-100.0); Monocytes # (auto) 1.5 10 ^3/uL (0-1.3); Monocytes % (auto) 10.3 % (0.0-12.0); Neutrophils # (auto) 11.5 10 ^3/uL (1.6-8.6); Neutrophils % (auto) 79.2 % (37.0-80.0); Red Blood Cells 4.22 10^6/uL (4.5-5.90); Red Cell Distribution Width 13.4 % (11.8-14.3); White Blood Cell 14.6 10^3/uL (4.4-10.8)
[2022-06-17 05:43] LABS: Albumin 2.4 g/dL (3.4-5.0); Calcium 9.4 mg/dL (8.5-10.1); Potassium 3.5 mmol/L (3.5-5.1)
[2022-06-17 05:48] LABS: BUN/Creatinine Ratio 22.1; Bilirubin, Total 0.7 mg/dL (0.2-1.0); Total Protein 5.3 g/dL (6.4-8.2)
[2022-06-17] MEDS: MORPHINE SULFATE INJ 2 MG/ml SYRG IV PRN (05:54)
[2022-06-17] MEDS: HYDROcodone-ACET 5/325MG TAB PO PRN ×4 (08:17→21:55)
[2022-06-17 08:26] VITALS: BP 94/65
[2022-06-17] MEDS: MULTIPLE VITAMIN TAB PO SCH (10:37)
[2022-06-17] MEDS: ENOXAPARIN SOD 40 MG/0.4 ML SYRINGE SC SCH (10:37)
[2022-06-17] MEDS: ASCORBIC ACID 500 MG TAB PO SCH ×2 (10:37→21:55)
[2022-06-17] MEDS: PANTOPRAZOLE 40 MG TAB PO SCH (10:37)
[2022-06-17] MEDS: ZINC SULFATE 220mg CAP or TAB PO SCH (10:37)
[2022-06-17 12:43] VITALS: BP 101/58
[2022-06-17 16:35] VITALS: BP 104/71
[2022-06-17 22:00] VITALS: BP 98/82
[2022-06-18] MEDS: VANCOMYCIN 1GM/250ML 250 ML IV SCH ×2 (04:52→16:48)
[2022-06-18 05:00] VITALS: BP 101/70
[2022-06-18 06:23] LABS: Potassium 3.3 mmol/L (3.5-5.1)
[2022-06-18 06:26] LABS: BUN/Creatinine Ratio 24.7
[2022-06-18 08:00] VITALS: BP 102/77
[2022-06-18] MEDS: ZINC SULFATE 220mg CAP or TAB PO SCH (08:16)
[2022-06-18] MEDS: MULTIPLE VITAMIN TAB PO SCH (08:17)
[2022-06-18] MEDS: ASCORBIC ACID 500 MG TAB PO SCH ×2 (08:18→22:05)
[2022-06-18] MEDS: HYDROcodone-ACET 5/325MG TAB PO PRN ×4 (08:18→22:05)
[2022-06-18] MEDS: PANTOPRAZOLE 40 MG TAB PO SCH (08:18)
[2022-06-18] MEDS: ENOXAPARIN SOD 40 MG/0.4 ML SYRINGE SC SCH (08:19)
[2022-06-18 09:00] VITALS: BP 102/77
[2022-06-18] MEDS ORDERED: NALOXONE HCL 0.4 MG/ML VIAL ONE (11:27)
[2022-06-18 13:00] VITALS: BP 107/74
[2022-06-18 17:00] VITALS: BP 107/73
[2022-06-18 22:00] VITALS: BP 108/73
[2022-06-19 05:00] VITALS: BP 118/89
[2022-06-19] MEDS: VANCOMYCIN 1GM/250ML 250 ML IV SCH ×2 (05:19→16:42)
[2022-06-19] MEDS: HYDROcodone-ACET 5/325MG TAB PO PRN ×4 (05:24→20:24)
[2022-06-19 08:00] VITALS: BP 135/87
[2022-06-19] MEDS: MULTIPLE VITAMIN TAB PO SCH (10:33)
[2022-06-19] MEDS: ZINC SULFATE 220mg CAP or TAB PO SCH (10:33)
[2022-06-19] MEDS: PANTOPRAZOLE 40 MG TAB PO SCH (10:33)
[2022-06-19] MEDS: POTASSIUM CHL 20 Meq TABLET PO SCH (10:33)
[2022-06-19] MEDS: ASCORBIC ACID 500 MG TAB PO SCH ×2 (10:34→21:18)
[2022-06-19] MEDS: ENOXAPARIN SOD 40 MG/0.4 ML SYRINGE SC SCH (10:34)
[2022-06-19] MEDS: FUROSEMIDE 40 MG TAB PO SCH (10:34)
[2022-06-19 12:00] VITALS: BP 120/78
[2022-06-19 16:00] VITALS: BP 114/74
[2022-06-19 22:00] VITALS: BP 111/65
[2022-06-20] MEDS: HYDROcodone-ACET 5/325MG TAB PO PRN ×3 (00:25→14:05)
[2022-06-20 05:00] VITALS: BP 132/84
[2022-06-20] MEDS: VANCOMYCIN 1GM/250ML 250 ML IV SCH (05:02)
[2022-06-20 08:00] VITALS: BP 128/89
[2022-06-20] MEDS ORDERED: CEFTRIAXONE SODIUM 2 GM in D5W 5% 50 ML IV SCH (10:00)
[2022-06-20] MEDS: ZINC SULFATE 220mg CAP or TAB PO SCH (10:08)
[2022-06-20] MEDS: ENOXAPARIN SOD 40 MG/0.4 ML SYRINGE SC SCH (10:08)
[2022-06-20] MEDS: ASCORBIC ACID 500 MG TAB PO SCH (10:08)
[2022-06-20] MEDS: PANTOPRAZOLE 40 MG TAB PO SCH (10:08)
[2022-06-20] MEDS: MULTIPLE VITAMIN TAB PO SCH (10:08)
[2022-06-20] MEDS: FUROSEMIDE 40 MG TAB PO SCH (10:08)
[2022-06-20] MEDS: POTASSIUM CHL 20 Meq TABLET PO SCH (10:09)
[2022-06-20 12:00] VITALS: BP 123/89
[2022-06-20] MEDS ORDERED: METR500T PO (14:42)
[2022-06-20] MEDS ORDERED: CEFD300C2 PO (14:42)
[2022-06-20 16:00] VITALS: BP 112/82
[2022-06-20 16:20] VITALS: BP 112/82
== END 2022-06-20 17:45 | disposition hospice, home (50) | DRG 383 ==
LOC: ER 12:20 → TELE 19:36 → TELE-E-ADS 06-16 14:41 → TELE-CENTR 06-16 16:22
PROVIDERS: ADMIT Nurse Practitioner; ATTEND Nurse Practitioner
DX: L03.317 Cellulitis of buttock (principal); L89.150 Pressure ulcer of sacral region, unstageable; I11.0 Hypertensive heart disease with heart failure; I50.9 Heart failure, unspecified; E11.65 Type 2 diabetes mellitus with hyperglycemia; E78.5 Hyperlipidemia, unspecified; R33.9 Retention of urine, unspecified; E66.01 Morbid (severe) obesity due to excess calories; Z20.822 Contact with and (suspected) exposure to COVID-19; J44.9 Chronic obstructive pulmonary disease, unspecified; L02.31 Cutaneous abscess of buttock; Z80.1 Family history of malignant neoplasm of trachea, bronchus and lung; Z82.49 Family history of ischemic heart disease and other diseases of the circulatory system; Z68.38 Body mass index [BMI] 38.0-38.9, adult; Z80.0 Family history of malignant neoplasm of digestive organs; Z83.3 Family history of diabetes mellitus; Z85.038 Personal history of other malignant neoplasm of large intestine
CPT/HCPCS: 36415; 74177; 76881; 80048; 80053; 80202; 85025; 85652; 86141; 87077; 87186; 87205; 87426; 96365; 96366; 96372; G0378; J0696; J7060